=== PATIENT | female | born 1965 | race African-American/Black ===

== ENCOUNTER 2017-12-01 09:01 | Emergency (ER) | payer MEDICAID ==
[~2017-12-01] VITALS: Ht 162.6 cm; Wt 119.3 kg
[~2017-12-01 09:01] MED LIST: ALBU6.7H IH; AMLO10TA80 PO; DIPH50CA4 PO; FERR324T6 PO; HYDR-519 PO; MORP30TA66 PO; NITR0.4T49 SL
[2017-12-01 09:11] VITALS: BP 178/94
[2017-12-01] MEDS ORDERED: PHENAZOPYRIDINE HCL 200MG TABLET PO ONE (10:15)
[2017-12-01 11:02] LABS: CLARITY URINE CLOUDY (CLEAR); COLOR URINE DARK YELLOW (YELLOW); KETONES URINE TRACE (NEGATIVE); LEUKOCYTE ESTERASE URINE TRACE (NEGATIVE); NITRITE URINE NEGATIVE (NEGATIVE); OCCULT BLOOD URINE 3+ (NEGATIVE); PROTEIN URINE 3+ (NEGATIVE); SPECIFIC GRAVITY URINE 1.025 (1.005-1.030)
== END 2017-12-01 12:03 | disposition home or self-care (01) ==
LOC: ER 09:01
DX: N39.0 Urinary tract infection, site not specified (principal); Z98.890 Other specified postprocedural states; J45.909 Unspecified asthma, uncomplicated; I10 Essential (primary) hypertension; F12.10 Cannabis abuse, uncomplicated; Z90.49 Acquired absence of other specified parts of digestive tract; Z85.41 Personal history of malignant neoplasm of cervix uteri; Z96.659 Presence of unspecified artificial knee joint
CPT/HCPCS: 81003; 87086; 99284

== ENCOUNTER 2018-11-23 12:22 | Emergency (ER) | payer MEDICAID ==
[~2018-11-23] VITALS: Ht 162.6 cm; Wt 79.0 kg
[2018-11-23] MEDS ORDERED: TETANUS, DIPHTHERIA, PERTUSSIS VAC/PF 0.5ML (>7YR OLD) IM ONE (14:15)
[2018-11-23] MEDS ORDERED: LIDOCAINE HCL 1% 20ML VIAL (Pyxis) INJ INFIL ONE (14:15)
[2018-11-23 14:26] LABS: BASOPHILS % 0.2 % (0.0-2.0); EOSINOPHILS % 0.8 % (0.0-5.0); HEMATOCRIT. 42.4 % (36.0-48.0); HEMOGLOBIN. 13.6 g/dL (12.0-16.0); LYMPHOCYTES % 12.3 % (20.0-50.0); MEAN CORPUSCULAR HEMOGLOBIN 26.7 pg (28.0-32.0); MEAN CORPUSCULAR VOLUME 83.2 fL (81.0-99.0); MEAN PLATELET VOLUME 8.7 fl (7.4-10.4); MONOCYTES % 6.5 % (2.0-8.0); NEUTROPHILS % 80.2 % (40.0-76.0); PLATELET 208 x1000/uL (130-400); RED CELL DISTRIBUTION WIDTH 17.7 % (11.6-14.6)
[2018-11-23 14:33] LABS: CHLORIDE 110 mEq/L (98-107)
[2018-11-23 17:15] VITALS: BP 162/86
== END 2018-11-23 17:31 | disposition home or self-care (01) ==
LOC: ER 12:22
DX: S91.342A Puncture wound with foreign body, left foot, initial encounter (principal); R53.1 Weakness; I10 Essential (primary) hypertension; W22.8XXA Striking against or struck by other objects, initial encounter; Y93.89 Activity, other specified; Y92.89 Other specified places as the place of occurrence of the external cause; Z23 Encounter for immunization; Z85.41 Personal history of malignant neoplasm of cervix uteri; Z92.3 Personal history of irradiation; Z79.899 Other long term (current) drug therapy
CPT/HCPCS: 36415; 71045; 73630; 80053; 83880; 84484; 85025; 90471; 90715; 93005; 99284; J3490

== ENCOUNTER 2019-02-28 08:29 | Emergency (ER) | payer MEDICAID ==
[~2019-02-28] VITALS: Ht 165.1 cm; Wt 122.0 kg
[2019-02-28 12:57] LABS: CLARITY URINE CLOUDY (CLEAR); COLOR URINE YELLOW (YELLOW); KETONES URINE NEGATIVE (NEGATIVE); LEUKOCYTE ESTERASE URINE 1+ (NEGATIVE); NITRITE URINE NEGATIVE (NEGATIVE); OCCULT BLOOD URINE 3+ (NEGATIVE); PROTEIN URINE 3+ (NEGATIVE); SPECIFIC GRAVITY URINE 1.016 (1.005-1.030); UROBILINOGEN URINE 0.2 E.U./dL (0.2-1.0)
[2019-02-28] MEDS ORDERED: ACETAMINOPHEN 500MG TABLET PO ONE (13:45)
[2019-02-28 13:58] VITALS: BP 147/76
== END 2019-02-28 13:58 | disposition home or self-care (01) ==
LOC: ER 08:29
DX: N39.0 Urinary tract infection, site not specified (principal); I10 Essential (primary) hypertension; J45.909 Unspecified asthma, uncomplicated; F12.10 Cannabis abuse, uncomplicated; Z85.9 Personal history of malignant neoplasm, unspecified; Z90.89 Acquired absence of other organs; Z96.651 Presence of right artificial knee joint
CPT/HCPCS: 81003; 81025; 99283

== ENCOUNTER 2019-04-05 08:27 | Emergency (ER) | payer MEDICAID ==
[~2019-04-05] VITALS: Ht 162.6 cm; Wt 114.0 kg
[~2019-04-05 08:27] MED LIST changes: -ALBU6.7H IH; +ALBU6.7H11 IH
[2019-04-05] MEDS ORDERED: KETOROLAC 30MG/ML VIAL IV STA (08:44)
[2019-04-05] MEDS ORDERED: ONDANSETRON HCL 4MG/2ML INJ IV STA (08:45)
[2019-04-05 09:10] VITALS: BP 169/102
[2019-04-05 09:31] LABS: CHLORIDE 105 mEq/L (98-107); CLARITY URINE CLEAR (CLEAR); COLOR URINE YELLOW (YELLOW); KETONES URINE NEGATIVE (NEGATIVE); LEUKOCYTE ESTERASE URINE NEGATIVE (NEGATIVE); NITRITE URINE NEGATIVE (NEGATIVE); OCCULT BLOOD URINE NEGATIVE (NEGATIVE); PROTEIN URINE 1+ (NEGATIVE); SPECIFIC GRAVITY URINE 1.015 (1.005-1.030); UROBILINOGEN URINE 0.2 E.U./dL (0.2-1.0)
[2019-04-05 09:57] LABS: HEMATOCRIT. 44.2 % (36.0-48.0); HEMOGLOBIN. 14.3 g/dL (12.0-16.0); MEAN CORPUSCULAR HEMOGLOBIN 26.2 pg (28.0-32.0); MEAN CORPUSCULAR VOLUME 81.4 fL (81.0-99.0); MEAN PLATELET VOLUME 9.2 fl (7.4-10.4); PLATELET 200 x1000/uL (130-400); RED BLOOD CELL COUNT 5.43 mill/uL (4.2-5.4); RED CELL DISTRIBUTION WIDTH 16.1 % (11.6-14.6)
[2019-04-05 10:37] LABS: PLATELET ESTIMATE NORMAL
== END 2019-04-05 11:12 | disposition home or self-care (01) ==
LOC: ER 08:27
DX: J10.1 Influenza due to other identified influenza virus with other respiratory manifestations (principal); R10.9 Unspecified abdominal pain; I10 Essential (primary) hypertension; Z90.49 Acquired absence of other specified parts of digestive tract; F12.10 Cannabis abuse, uncomplicated; Z96.659 Presence of unspecified artificial knee joint; Z79.899 Other long term (current) drug therapy
CPT/HCPCS: 36415; 71045; 74176; 80053; 81003; 83690; 85025; 87804; 96374; 96375; 99284; J1885; J2405

== ENCOUNTER 2020-12-24 08:57 | Emergency (ER) | payer MEDICAID ==
[~2020-12-24] VITALS: Ht 167.6 cm; Wt 109.0 kg
[~2020-12-24 08:57] MED LIST changes: -ALBU6.7H11 IH; +ALBU6.7H15 IH
[2020-12-24] MEDS ORDERED: DIAZEPAM 5 MG TABLET PO ONE (09:30)
[2020-12-24] MEDS ORDERED: NAPR-681 PO (11:22)
[2020-12-24] MEDS ORDERED: KETOROLAC 15MG/ML VIAL IV ONE (11:30)
[2020-12-24 11:35] VITALS: BP 149/85
== END 2020-12-24 11:36 | disposition home or self-care (01) ==
LOC: ER 08:57
DX: R07.81 Pleurodynia (principal); J44.1 Chronic obstructive pulmonary disease with (acute) exacerbation; I10 Essential (primary) hypertension
CPT/HCPCS: 71045; 96374; 99283; J1885